=== PATIENT | male | born 1945 | race Caucasian/White ===

== ENCOUNTER 2021-06-10 18:48 | Emergency (ER) | payer MEDICARE, BC ==
--- NOTE | 2021-06-10 19:44 | EDM.PDOC ---
ED HPI GENERAL MEDICAL PROBLEM - General Chief Complaint: ENT Problem Stated Complaint: COUGH AND HEADACHE Time Seen by Provider: 06/10/21 19:25 Source of Information: Reports: Patient, Old Records, RN History Limitations: Reports: No Limitations - History of Present Illness INITIAL COMMENTS - FREE TEXT/NARRATIVE: 75 yo male who has had 2 of the Moderna Covid vaccines already presents with several days of post-nasal drip, an occasional cough productive of clear sputum, and also now just today some mild chills. He was [facility] last [facility] with lots of people and wonders if he picked up Covid there? He is supposed to go to a tomorrow and wanted to make sure he was safe to go before the event. He is here with his who is not symptomatic. There has not been a lot of sneezing with this illness. Onset: Gradual Onset Date: 06/05/21 Duration: Day(s):, Getting Worse Location: Reports: Face (nose), Chest (cough) Quality: Reports: Other (no pain reported) Severity: Mild Improves with: Reports: None Worsens with: Reports: Other (slowly worsening) Context: Reports: Other (See HPI) Associated Symptoms: Reports: Cough, Fever/Chills (no fever), Other (post-nasal drip). 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: Reports: Other (see below) (none) - Related Data Allergies Allergy/AdvReac Type Severity Reaction Status Date / Time No Known Allergies Allergy Verified 06/10/21 19:09 Home Meds: Home Meds Aspirin 325 mg PO BID 04/25/16 [History] Clopidogrel Bisulfate [Plavix] 75 mg PO DAILY 04/25/16 [History] Cyanocobalamin (Vitamin B-12) [Vitamin B-12] 2,000 mcg PO DAILY 04/25/16 [History] Digoxin [Lanoxin] 250 mcg PO DAILY 04/25/16 [History] Lisinopril [Prinivil] 20 mg PO DAILY 04/25/16 [History] Metoprolol Tartrate 75 mg PO BID 04/25/16 [History] Naproxen Sodium [Aleve] 220 mg PO DAILY PRN 04/25/16 [History] Nitroglycerin [Nitrostat] 0.4 mg PO ASDIRECTED PRN 04/25/16 [History] [place]-3/DHA/Epa/Fish Oil [[place]-3 Fish Oil 1,000 MG Sfgl] 1,000 mg PO DAILY 04/25/16 [History] Pantoprazole Sodium [Protonix] 40 mg PO DAILY 04/25/16 [History] Rosuvastatin [Crestor] 40 mg PO DAILY 04/25/16 [History] glipiZIDE [Glucotrol] 5 mg PO BID 04/25/16 [History] metFORMIN [Glucophage] 1,000 mg PO BID 04/25/16 [History] Insulin Degludec [Tresiba Flextouch U-200] 76 unit SQ DAILY 06/10/21 [History] Past Medical History HEENT History: Reports: Hard of Hearing, Impaired Vision Cardiovascular History: Reports: CAD, High Cholesterol, Hypertension, Stents Respiratory History: Reports: Sleep Apnea Gastrointestinal History: Reports: Colon Polyp, GERD Genitourinary History: Reports: None Musculoskeletal History: Reports: Back Pain, Chronic, Neck Pain, Chronic, Osteoarthritis Neurological History: Reports: Neuropathy, Diabetic Psychiatric History: Reports: None Endocrine/Metabolic History: Reports: Diabetes, Type II, Obesity/BMI 30+ Hematologic History: Reports: None Immunologic History: Reports: None Oncologic (Cancer) History: Reports: Basal Cell Carcinoma - Infectious Disease History Infectious Disease History: Reports: Chicken Pox, Measles, Mumps, Pertussis (Whooping Cough) - Past Surgical History Cardiovascular Surgical History: Reports: Coronary Artery Bypass GI Surgical History: Reports: Colonoscopy Male Surgical History: Reports: Prostate Biopsy Neurological Surgical History: Reports: Laminectomy Musculoskeletal Surgical History: Reports: Arthroscopic Knee, Arthroscopic Procedure, Carpal Tunnel, Hip Replacement Oncologic Surgical History: Reports: Other (See Below) Other Oncologic Surgeries/Procedures: basal cell removed from chin Social & Family History - Family History Family Medical History: No Pertinent Family History - Tobacco Use Tobacco Use Status *Q: Never Tobacco User Second Hand Smoke Exposure: No - Caffeine Use Caffeine Use: Reports: None - Recreational Drug Use Recreational Drug Use: No ED ROS GENERAL - Review of Systems Review Of Systems: See Below Constitutional: Reports: Chills HEENT: Reports: Rhinitis Respiratory: Reports: Cough, Sputum (clear). Denies: Shortness of Breath, Wheezing, Pleuritic Chest Pain, Hemoptysis Cardiovascular: Reports: No Symptoms GI/Abdominal: Reports: No Symptoms Skin: Reports: No Symptoms Neurological: Reports: No Symptoms ED EXAM, GENERAL - Physical Exam Exam: See Below Exam Limited By: No Limitations General Appearance: Alert, WD/WN, No Apparent Distress Eye Exam: Bilateral Eye: Normal Inspection Ears: Normal External Exam, Normal Canal, Hearing Grossly Normal, Normal TMs Ear Exam: Bilateral Ear: Auricle Normal, Canal Normal, TM normal Nose: Normal Inspection, No Blood Throat/Mouth: Normal Inspection, Normal Lips, Normal Oropharynx, Normal Voice, No Airway Compromise Head: Atraumatic, Normocephalic Neck: Normal Inspection Respiratory/Chest: No Respiratory Distress, Lungs Clear, Normal Breath Sounds, No Accessory Muscle Use Cardiovascular: Regular Rate, Rhythm, No Edema Neurological: Alert, Oriented, CN II-XII Intact, Normal Cognition, No Motor/Sensory Deficits Psychiatric: Normal Affect, Normal Mood Skin Exam: Warm, Dry, Intact, Normal Color, No Rash Course - Vital Signs Last Recorded V/S: Last Vital Signs Temp 36.7 C 06/10/21 19:17 Pulse 97 06/10/21 19:17 Resp 16 06/10/21 19:17 BP 150/80 H 06/10/21 19:17 Pulse Ox 96 06/10/21 19:17 - Orders/Labs/Meds Labs: Laboratory Tests 06/10/21 Range/Units 19:28 SARS-CoV-2 RNA (HARJINDER) Positive H (NEGATIVE) Departure - Departure Time of Disposition: 20:08 Disposition: Home, Self-Care 01 Condition: Good Clinical Impression: COVID-19 - Discharge Information *PRESCRIPTION DRUG MONITORING PROGRAM REVIEWED*: Not Applicable *COPY OF PRESCRIPTION DRUG MONITORING REPORT IN PATIENT ANAMIKA: Not Applicable Instructions: COVID-19 Frequently Asked Questions Referrals: Isaak Godinez MD [Primary Care Provider] - Forms: ED Department Discharge Additional Instructions: Isolate yourself for 10 days after onset of symptoms. Take acetaminophen for pain/fever relief. Take Zinc 50 mg daily and if you are not already taking a baby aspirin consider taking one daily with food. Also vit D [id number] U per day is a good idea. Recheck if worse. Sepsis Event Note (ED) - Evaluation Sepsis Screening Result: No Definite Risk - Focused Exam Vital Signs: Vital Signs Temp Pulse Resp BP Pulse Ox 06/10/21 19:17 36.7 C 97 16 150/80 H 96
[2021-06-10 20:13] VITALS: BP 150/80; PULSE 97
== END 2021-06-10 20:20 | disposition home or self-care (01) ==
LOC: JP.ED 18:48
DX: U07.1 COVID-19 (principal); I25.10 Atherosclerotic heart disease of native coronary artery without angina pectoris; E78.00 Pure hypercholesterolemia, unspecified; I10 Essential (primary) hypertension; K21.9 Gastro-esophageal reflux disease without esophagitis; E11.40 Type 2 diabetes mellitus with diabetic neuropathy, unspecified; E66.9 Obesity, unspecified; Z68.41 Body mass index [BMI] 40.0-44.9, adult; Z95.1 Presence of aortocoronary bypass graft; Z79.82 Long term (current) use of aspirin; Z79.4 Long term (current) use of insulin; Z79.02 Long term (current) use of antithrombotics/antiplatelets; Z79.899 Other long term (current) drug therapy
CPT/HCPCS: 99283; U0002

== ENCOUNTER 2021-06-16 12:53 | Emergency (ER) | payer MEDICARE, BC ==
--- NOTE | 2021-06-16 13:59 | EDM.PDOC ---
ED HPI GENERAL MEDICAL PROBLEM - General Chief Complaint: Respiratory Problem Stated Complaint: COVID POSITIVE 06/10, SOB Time Seen by Provider: 06/16/21 13:40 Source of Information: Reports: Patient, Old Records, RN History Limitations: Reports: No Limitations - History of Present Illness INITIAL COMMENTS - FREE TEXT/NARRATIVE: 75 yo male came here last week very early into his course of Covid and had only post-nasal drip at that time. Now since yesterday he has had a dry cough and mild SOB. He is interested in the monoclonal antibodies. His provider, Dr. Godinez, is on vacation. Had [employer] vaccines x 2. Onset: Gradual Onset Date: 06/15/21 Duration: Day(s): (1+), Getting Worse Location: Reports: Chest Quality: Reports: Other (no pain) Severity: Mild Improves with: Reports: None Worsens with: Reports: Other (time) Context: Reports: Other (Covid dx'd last late last week) Associated Symptoms: Reports: Cough, Shortness of Breath. Denies: Fever/Chills Treatments MANAGER BENCH: Reports: Other (see below) (none) - Related Data Allergies Allergy/AdvReac Type Severity Reaction Status Date / Time No Known Allergies Allergy Verified 06/16/21 13:40 Home Meds: Home Meds Aspirin 325 mg PO BID 04/25/16 [History] Clopidogrel Bisulfate [Plavix] 75 mg PO DAILY 04/25/16 [History] Cyanocobalamin (Vitamin B-12) [Vitamin B-12] 2,000 mcg PO DAILY 04/25/16 [History] Digoxin [Lanoxin] 250 mcg PO DAILY 04/25/16 [History] Lisinopril [Prinivil] 20 mg PO DAILY 04/25/16 [History] Metoprolol Tartrate 75 mg PO BID 04/25/16 [History] Naproxen Sodium [Aleve] 220 mg PO DAILY PRN 04/25/16 [History] Nitroglycerin [Nitrostat] 0.4 mg PO ASDIRECTED PRN 04/25/16 [History] [place]-3/DHA/Epa/Fish Oil [[place]-3 Fish Oil 1,000 MG Sfgl] 1,000 mg PO DAILY 04/25/16 [History] Pantoprazole Sodium [Protonix] 40 mg PO DAILY 04/25/16 [History] Rosuvastatin [Crestor] 40 mg PO DAILY 04/25/16 [History] glipiZIDE [Glucotrol] 5 mg PO BID 04/25/16 [History] metFORMIN [Glucophage] 1,000 mg PO BID 04/25/16 [History] Insulin Degludec [Tresiba Flextouch U-200] 76 unit SQ DAILY 06/10/21 [History] Past Medical History HEENT History: Reports: Hard of Hearing, Impaired Vision Cardiovascular History: Reports: CAD, High Cholesterol, Hypertension, Stents Respiratory History: Reports: Sleep Apnea Gastrointestinal History: Reports: Colon Polyp, GERD Genitourinary History: Reports: None Musculoskeletal History: Reports: Back Pain, Chronic, Neck Pain, Chronic, Osteoarthritis Neurological History: Reports: Neuropathy, Diabetic Psychiatric History: Reports: None Endocrine/Metabolic History: Reports: Diabetes, Type II, Obesity/BMI 30+ Hematologic History: Reports: None Immunologic History: Reports: None Oncologic (Cancer) History: Reports: Basal Cell Carcinoma - Infectious Disease History Infectious Disease History: Reports: Chicken Pox, Measles, Mumps, Pertussis (Whooping Cough) - Past Surgical History Cardiovascular Surgical History: Reports: Coronary Artery Bypass GI Surgical History: Reports: Colonoscopy Male Surgical History: Reports: Prostate Biopsy Neurological Surgical History: Reports: Laminectomy Musculoskeletal Surgical History: Reports: Arthroscopic Knee, Arthroscopic Procedure, Carpal Tunnel, Hip Replacement Oncologic Surgical History: Reports: Other (See Below) Other Oncologic Surgeries/Procedures: basal cell removed from chin Social & Family History - Family History Family Medical History: No Pertinent Family History - Tobacco Use Tobacco Use Status *Q: Never Tobacco User - Caffeine Use Caffeine Use: Reports: None - Recreational Drug Use Recreational Drug Use: No ED ROS GENERAL - Review of Systems Review Of Systems: See Below Constitutional: Reports: Malaise. Denies: Fever HEENT: Reports: Rhinitis Respiratory: Reports: Shortness of Breath, Cough. Denies: Wheezing, Pleuritic Chest Pain, Sputum, Hemoptysis Cardiovascular: Reports: No Symptoms GI/Abdominal: Reports: No Symptoms : Reports: No Symptoms Musculoskeletal: Reports: No Symptoms Skin: Reports: No Symptoms Neurological: Reports: No Symptoms ED EXAM, GENERAL - Physical Exam Exam: See Below Exam Limited By: No Limitations General Appearance: Alert, WD/WN, No Apparent Distress, Obese Eye Exam: Bilateral Eye: Normal Inspection Ears: Normal External Exam, Normal Canal, Hearing Grossly Normal Ear Exam: Bilateral Ear: Auricle Normal, Canal Normal Nose: Normal Inspection, No Blood Throat/Mouth: Normal Inspection, Normal Lips, Normal Oropharynx, Normal Voice, No Airway Compromise Head: Atraumatic, Normocephalic Neck: Normal Inspection Respiratory/Chest: No Respiratory Distress, Lungs Clear, Normal Breath Sounds, No Accessory Muscle Use, Other (dry cough) Cardiovascular: Regular Rate, Rhythm, No Edema Back Exam: Normal Inspection Extremities: Normal Inspection, Normal Range of Motion, Non-Tender, No Pedal Edema Neurological: Alert, Oriented, CN II-XII Intact, Normal Cognition, No Motor/Sensory Deficits Psychiatric: Normal Affect, Normal Mood Skin Exam: Warm, Dry, Intact, Normal Color, No Rash Course - Vital Signs Last Recorded V/S: Last Vital Signs Temp 36.6 C 06/16/21 15:19 Pulse 84 06/16/21 16:06 Resp 18 06/16/21 15:19 BP 100/55 L 06/16/21 16:06 Pulse Ox 93 L 06/16/21 16:06 - Orders/Labs/Meds Orders: Active Orders 24 hr Category Date Time Status Acetaminophen [TylenoL] Med 06/16/21 15:00 Active 650 mg PO ONETIME PRN EPINEPHrine [Adrenalin] Med 06/16/21 15:00 Active 0.3 mg IM ONETIME PRN Famotidine [Pepcid] Med 06/16/21 15:00 Active 20 mg IV ONETIME PRN diphenhydrAMINE [Benadryl] Med 06/16/21 15:00 Active 50 mg IVPUSH ONETIME PRN methylPREDNISolone Sod Succ [Solu-MEDROL] Med 06/16/21 15:00 Active 125 mg IVPUSH ONETIME PRN Medication Orders Acetaminophen (Acetaminophen 325 Mg Tab) 650 mg PO ONETIME PRN PRN Reason: HEADACHE,CHILLS Diphenhydramine HCl (Diphenhydramine 50 Mg/Ml Sdv) 50 mg IVPUSH ONETIME PRN PRN Reason: ALLERGIC RXN Epinephrine HCl (Epinephrine 1 Mg/Ml Sdv) 0.3 mg IM ONETIME PRN PRN Reason: ALLERGIC RXN Famotidine (Famotidine 20 Mg/2 Ml Sdv) 20 mg IV ONETIME PRN PRN Reason: ALLERGIC RXN Methylprednisolone Sodium Succinate (Methylprednisolone Sodium Succinate 125 Mg/2 Ml Sdv) 125 mg IVPUSH ONETIME PRN PRN Reason: ALLERGIC RXN Meds: Medications Generic Name Dose Route Start Last Admin Trade Name Freq PRN Reason Stop Dose Admin Acetaminophen 650 mg 06/16/21 15:00 Acetaminophen 325 Mg Tab PO ONETIME PRN HEADACHE,CHILLS Diphenhydramine HCl 50 mg 06/16/21 15:00 Diphenhydramine 50 Mg/Ml Sdv IVPUSH ONETIME PRN ALLERGIC RXN Epinephrine HCl 0.3 mg 06/16/21 15:00 Epinephrine 1 Mg/Ml Sdv IM ONETIME PRN ALLERGIC RXN Famotidine 20 mg 06/16/21 15:00 Famotidine 20 Mg/2 Ml Sdv IV ONETIME PRN ALLERGIC RXN Methylprednisolone Sodium Succinate 125 mg 06/16/21 15:00 Methylprednisolone Sodium Succinate 125 Mg/2 Ml Sdv IVPUSH ONETIME PRN ALLERGIC RXN Discontinued Medications Generic Name Dose Route Start Last Admin Trade Name Freq PRN Reason Stop Dose Admin CASIRIVIMAB/IMDEVIMAB 10 ml/ 160 mls @ 310 mls/hr 06/16/21 15:00 06/16/21 14:47 Sodium Chloride IV 06/16/21 15:30 310 mls/hr ONETIME ONE Administration - Re-Assessments/Exams Free Text/Narrative Re-Assessment/Exam: 06/16/21 13:59h Will give the BAM treatment today in ER. Free Text/Narrative Re-Assessment/Exam: 06/16/21 16:21 Tolerated BAM, home now. Departure - Departure Time of Disposition: 16:21 Disposition: Home, Self-Care 01 Condition: Fair Clinical Impression: COVID-19 - Discharge Information *PRESCRIPTION DRUG MONITORING PROGRAM REVIEWED*: Not Applicable *COPY OF PRESCRIPTION DRUG MONITORING REPORT IN PATIENT [place]KA: Not Applicable Instructions: COVID-19 Frequently Asked Questions, What You Should Know About COVID-19 to Protect Yourself and Others - [facility] Referrals: Isaak Godinez MD [Primary Care Provider] - Forms: ED Department Discharge Additional Instructions: Return of follow up with your provider as needed. Sepsis Event Note (ED) - Focused Exam Vital Signs: Vital Signs Temp Temp Pulse Resp BP Pulse Ox 06/16/21 16:06 84 100/55 L 93 L 06/16/21 15:19 36.6 C 85 18 98/56 L 94 L 06/16/21 15:03 36.4 C 84 20 97/56 L 94 L 06/16/21 14:50 36.4 C 82 18 93/45 L 93 L 06/16/21 13:38 36.8 C 86 16 121/65 94 L 06/16/21 13:23 36.8 C 86 16 121/65 94 L - My Orders Last 24 Hours: My Active Orders 06/16/21 15:00 Acetaminophen [TylenoL] 650 mg PO ONETIME PRN EPINEPHrine [Adrenalin] 0.3 mg IM ONETIME PRN Famotidine [Pepcid] 20 mg IV ONETIME PRN diphenhydrAMINE [Benadryl] 50 mg IVPUSH ONETIME PRN methylPREDNISolone Sod Succ [Solu-MEDROL] 125 mg IVPUSH ONETIME PRN - Assessment/Plan Last 24 Hours: My Active Orders 06/16/21 15:00 Acetaminophen [TylenoL] 650 mg PO ONETIME PRN EPINEPHrine [Adrenalin] 0.3 mg IM ONETIME PRN Famotidine [Pepcid] 20 mg IV ONETIME PRN diphenhydrAMINE [Benadryl] 50 mg IVPUSH ONETIME PRN methylPREDNISolone Sod Succ [Solu-MEDROL] 125 mg IVPUSH ONETIME PRN
[2021-06-16] MEDS ORDERED: CASIRIVIMAB/IMDEVIMAB 10 ML in Sodium Chloride 0.9% 150 ML IV ONE (15:00)
[2021-06-16] MEDS ORDERED: methylPREDNISolone Sodium Succinate 125 MG/2 ML SDV IVPUSH PRN (15:00)
[2021-06-16] MEDS ORDERED: Famotidine 20 MG/2 ML SDV IV PRN (15:00)
[2021-06-16] MEDS ORDERED: Acetaminophen 325 MG Tab PO PRN (15:00)
[2021-06-16] MEDS ORDERED: diphenhydrAMINE 50 MG/ML SDV IVPUSH PRN (15:00)
[2021-06-16] MEDS ORDERED: EPINEPHrine 1 MG/ML SDV IM PRN (15:00)
[2021-06-16 16:07] VITALS: BP 100/55; PULSE 84
== END 2021-06-16 16:40 | disposition home or self-care (01) ==
LOC: JP.ED 12:53
DX: U07.1 COVID-19 (principal); E78.00 Pure hypercholesterolemia, unspecified; I25.10 Atherosclerotic heart disease of native coronary artery without angina pectoris; I10 Essential (primary) hypertension; E11.40 Type 2 diabetes mellitus with diabetic neuropathy, unspecified; E66.9 Obesity, unspecified; Z68.41 Body mass index [BMI] 40.0-44.9, adult; Z95.1 Presence of aortocoronary bypass graft; Z79.02 Long term (current) use of antithrombotics/antiplatelets; Z79.82 Long term (current) use of aspirin; Z79.899 Other long term (current) drug therapy
CPT/HCPCS: 99284; M0243; Q0243

== ENCOUNTER 2025-08-17 03:18 | Emergency (ER) | payer MEDICARE, BC ==
[2025-08-17 03:47] LABS: BASOPHILS ABSOLUTE AUTO 0.06 K/uL (0.00-0.10); BASOPHILS PERCENT AUTO 0.6 % (0.1-1.3); EOSINOPHILS ABSOLUTE AUTO 0.28 K/uL (0.00-0.40); EOSINOPHILS PERCENT AUTO 3.0 % (0.0-5.4); IMMATURE GRAN ABSOLUTE AUTO 0.04 K/uL (0.00-0.23); IMMATURE GRAN PERCENT AUTO 0.4 % (0.0-0.7); LYMPHOCYTES ABSOLUTE AUTO 2.87 K/uL (0.8-3.3); LYMPHOCYTES PERCENT AUTO 30.7 % (11.4-47.7); MONOCYTES ABSOLUTE AUTO 1.08 K/uL (0.20-0.90); MONOCYTES PERCENT AUTO 11.6 % (3.3-12.6); NEUTROPHILS ABSOLUTE AUTO 5.02 K/uL (1.0-7.6); NEUTROPHILS PERCENT AUTO 53.7 % (40.0-78.1); PLATELET COUNT,PLT 162 K/uL (130-375); RED BLOOD CELL COUNT 4.88 M/uL (4.14-5.76); WHITE BLOOD CELL COUNT,WBC 9.4 K/uL (3.2-11.0)
[2025-08-17 04:14] LABS: A/G RATIO 1.1 (1.2-2.2); ALANINE AMINOTRANSFERASE,ALT 19 U/L (12-78); ASPARTATE AMNIOTRANSFERASE,AST 12 U/L (15-37); BILIRUBIN TOTAL 0.3 mg/dL (0.2-1.0); BLOOD UREA NITROGEN,BUN 19 mg/dL (7-18); CARBON DIOXIDE,CO2 30 mmol/L (21-32); CHLORIDE,CL 102 mmol/L (100-108); CREATININE 1.0 mg/dL (0.8-1.3); EST CRCL DRUG DOSING (CG) 58.90 mL/min; ESTIMATED GFR 77 mL/min (>60); GLUCOSE RANDOM 165 mg/dL (74-106); POTASSIUM,K 4.1 mmol/L (3.6-5.2); PROTEIN TOTAL,TP 6.6 g/dL (6.4-8.2); SODIUM,NA 138 mmol/L (140-148)
[2025-08-17] MEDS: Heparin Sodium 5,000 Units/ML Vial IVPUSH ONE (05:03)
[2025-08-17] MEDS: Sodium Chloride 0.9% 10 ML Syringe FLUSH ONE (05:15)
[2025-08-17] MEDS: Iopamidol 755 Mg/ML 100 ML Bottle IV SCH (05:15)
[2025-08-17 05:50] VITALS: BP 125/64; PULSE 69
== END 2025-08-17 06:27 ==
LOC: JP.ED 03:18
DX: I21.4 Non-ST elevation (NSTEMI) myocardial infarction (principal); I10 Essential (primary) hypertension; K21.9 Gastro-esophageal reflux disease without esophagitis; R06.89 Other abnormalities of breathing; M19.90 Unspecified osteoarthritis, unspecified site; E78.00 Pure hypercholesterolemia, unspecified; E66.9 Obesity, unspecified; E11.9 Type 2 diabetes mellitus without complications; Z79.82 Long term (current) use of aspirin; Z79.4 Long term (current) use of insulin; Z79.899 Other long term (current) drug therapy; Z68.39 Body mass index [BMI] 39.0-39.9, adult
CPT/HCPCS: 36415; 71046; 71275; 80053; 80162; 83880; 84484; 85025; 85379; 93005; 96365; 96367; 99285; A9270; J1644; Q9967; 93010; J2305